=== PATIENT | female | born 1955 | race Hispanic/Latino ===

== ENCOUNTER → 2017-11-09 | Outpatient (CLI) | payer OTHER ==
[~2017-11-09] MED LIST: CHOL200074 PO; HYDR-2132 PO; INSLAN SQ; INSU100C6 SQ; INSU3INS3 SQ; LISI10TA7 PO; LOVA10TA2 PO; METF500T6 PO; RIVA10TA PO; TRAM50TA4 PO
== END | disposition home or self-care (01) ==
LOC: OIH 13:24
PROVIDERS: ATTEND Internal Medicine
DX: Z13.6 Encounter for screening for cardiovascular disorders (principal)
CPT/HCPCS: 75571

== ENCOUNTER → 2023-05-19 | Outpatient (CLI) | payer MEDICARE, OTHER ==
[~2023-05-19] MED LIST changes: +LISI10TA24 PO; -LISI10TA7 PO; +METF-444 PO; -METF500T6 PO
== END | disposition home or self-care (01) ==
LOC: RAH 10:48
PROVIDERS: ATTEND Physician Assistant
DX: M47.816 Spondylosis without myelopathy or radiculopathy, lumbar region (principal); M48.061 Spinal stenosis, lumbar region without neurogenic claudication; M54.51 Vertebrogenic low back pain; M99.05 Segmental and somatic dysfunction of pelvic region
CPT/HCPCS: 72114

== ENCOUNTER → 2023-06-04 | Outpatient (CLI) | payer MEDICARE, OTHER | END | disposition home or self-care (01) | LOC: RAH 13:05 | PROVIDERS: ATTEND Physical Medicine & Rehabilitation | DX: M19.012 Primary osteoarthritis, left shoulder (principal); M25.412 Effusion, left shoulder; M25.512 Pain in left shoulder | CPT/HCPCS: 73221 ==

== ENCOUNTER → 2023-06-10 | Outpatient (CLI) | payer MEDICARE, OTHER | END | disposition home or self-care (01) | LOC: RAH 09:21 | PROVIDERS: ATTEND Physical Medicine & Rehabilitation | DX: M48.07 Spinal stenosis, lumbosacral region (principal); M54.51 Vertebrogenic low back pain; M99.05 Segmental and somatic dysfunction of pelvic region | CPT/HCPCS: 72114 ==

== ENCOUNTER 2023-10-07 13:44 | Emergency (ER) | payer MEDICARE ==
[~2023-10-07] VITALS: Ht 152.4 cm; Wt 85.7 kg
[2023-10-07 16:13] LABS: BASOPHILS # (AUTO) 0.02 K/uL (0.00-0.20); BASOPHILS % (AUTO) 0.3 % (0.0-5.0); EOSINOPHILS % (AUTO) 3.4 % (0.0-8.0); HEMATOCRIT 40.3 % (36-48); IMMATURE GRANULOCYTE ABSOLUTE 0.02 K/uL (0-1); LYMPHOCYTES # (AUTO) 0.6 K/uL (1.0-4.8); LYMPHOCYTES % (AUTO) 9.6 % (21.0-51.0); MEAN CORPUSCULAR HEMOGLOBIN 28.4 pg (27.0-33.0); MEAN CORPUSCULAR HGB CONC 32.3 g/dL (32.0-36.0); MEAN CORPUSCULAR VOLUME 88.2 fL (79-99); MONOCYTES # (AUTO) 0.3 K/uL (0.1-1.0); MONOCYTES % (AUTO) 5.7 % (3.0-13.0); NEUTROPHILS # (AUTO) 4.7 K/uL (1.8-7.7); NEUTROPHILS % (AUTO) 80.7 % (40.0-77.0); PLATELET COUNT (AUTO) 174 K/uL (130-400); RED BLOOD CELL COUNT(AUTO) 4.57 MIL/uL (4.00-5.50); RED CELL DISTRIBUTION WIDTH 14.8 % (11.0-15.5); WHITE BLOOD COUNT (AUTO) 5.8 K/uL (4.8-10.8)
[2023-10-07 16:25] LABS: CREATININE 1.2 mg/dL (0.5-1.0); POTASSIUM 4.2 mmol/L (3.5-5.1)
[2023-10-07 16:30] LABS: ALBUMIN 3.5 g/dL (3.5-5.0); BILIRUBIN,TOTAL 0.5 mg/dL (0.2-1.0); TOTAL PROTEIN, SERUM 6.9 g/dL (6.0-8.3)
[2023-10-07 17:31] LABS: WBC MORPHOLOGY CONSISTENT W/DIFF
[2023-10-07 18:21] LABS: APPEARANCE,URINE CLOUDY (CLEAR); BILIRUBIN,URINE NEGATIVE (NEGATIVE); COLOR,URINE LIGHT-YELLOW (YELLOW); GLUCOSE, URINE (UA) >=1000 mg/dL (NEGATIVE); KETONES,URINE NEGATIVE (NEGATIVE); LEUKOCYTE ESTERASE ,URINE 500 Leu/uL (NEGATIVE); NITRATE,URINE NEGATIVE (NEGATIVE); OCCULT BLOOD,URINE NEGATIVE (NEGATIVE); PH,URINE 5.5 (5.0-8.0); PROTEIN,URINE NEGATIVE (NEGATIVE); UROBILINOGEN,URINE 0.2 mg/dL (0.2-1.0)
[2023-10-07 18:25] LABS: ADD UA MICROSCOPIC YES
[2023-10-07 18:29] LABS: BACTERIA,URINE RARE /HPF (None Seen); MUCUS,URINE RARE LPF (None Seen); SQUAMOUS EPITHELIAL CELL,UR FEW /HPF (0-2); TRANSITIONAL EPI CELLS,URINE RARE /HPF (None Seen); WBC,URINE TNTC /HPF (0-1)
[2023-10-07] MEDS: ACETAMINOPHEN 500 MG TABLET PO ONE (18:49)
[2023-10-07] MEDS ORDERED: DICY20TA2 PO (20:07)
[2023-10-07 20:16] VITALS: BP 128/57; PULSE 62; RESP 18; O2SAT 98
== END 2023-10-07 20:22 | disposition home or self-care (01) ==
LOC: EDH 13:44
DX: K80.70 Calculus of gallbladder and bile duct without cholecystitis without obstruction (principal); K80.50 Calculus of bile duct without cholangitis or cholecystitis without obstruction; I12.9 Hypertensive chronic kidney disease with stage 1 through stage 4 chronic kidney disease, or unspecified chronic kidney disease; E11.22 Type 2 diabetes mellitus with diabetic chronic kidney disease; N18.9 Chronic kidney disease, unspecified; Z79.01 Long term (current) use of anticoagulants; E78.00 Pure hypercholesterolemia, unspecified; Z79.4 Long term (current) use of insulin; Z79.84 Long term (current) use of oral hypoglycemic drugs; Z90.710 Acquired absence of both cervix and uterus
CPT/HCPCS: 36415; 71045; 74176; 80053; 81001; 83690; 85025; 87088; 93005

== ENCOUNTER → 2024-09-09 | Outpatient (CLI) | payer MEDICARE ==
[~2024-09-09] MED LIST changes: +DICY20TA2 PO
--- NOTE | 2024-09-09 16:39 | HMCIMG ---
MRI RIGHT KNEE WITHOUT CONTRAST INDICATION: Pain. No other relevant history provided by the ordering service. Right knee replacement. COMPARISON: None. TECHNIQUE: Long and short axis fat and water weighted sequences were obtained through the right knee. FINDINGS: Extensive susceptibility artifact from underlying right knee arthroplasty hardware significantly limits this study. Collateral ligaments appear unremarkable. Popliteus tendon is not well visualized. Patella is not subluxed. Medial and lateral retinaculum appear grossly normal. Extensor mechanism is intact. Hoffa's fat pad is well preserved. No prepatellar soft tissue swelling or bursitis identified. Small amount of suprapatellar bursal fluid.. No evidence for myoedema. Trace fluid within the gastrocnemius semimembranosus bursa. Diffuse marrow pallor suggests osseous demineralization. No evidence for fracture. IMPRESSION: Limitations as reported. Small amount of suprapatellar bursal fluid and trace fluid within the gastrocnemius semimembranosus bursa, including diffuse osteopenia, without any acute osseous abnormality or overlying myoedema.
== END | disposition home or self-care (01) ==
LOC: RAH 10:41
PROVIDERS: ATTEND Physical Medicine & Rehabilitation
DX: M25.561 Pain in right knee (principal); M85.88 Other specified disorders of bone density and structure, other site; Z96.651 Presence of right artificial knee joint
CPT/HCPCS: 73721